=== PATIENT | male | born 1995 | race Caucasian/White ===

== ENCOUNTER 2023-06-07 13:09 | Emergency (ER) | payer BC ==
[~2023-06-07] VITALS: Ht 182.9 cm; Wt 85.7 kg
[2023-06-07 13:23] VITALS: BP 118/70; PULSE 108; RESP 16; TEMP 99.2; O2SAT 97
[2023-06-07] MEDS ORDERED: IBUP-2029 MT (16:46)
== END 2023-06-07 16:50 | disposition home or self-care (01) ==
LOC: ER 13:09
DX: J06.9 Acute upper respiratory infection, unspecified (principal); Z20.822 Contact with and (suspected) exposure to COVID-19
CPT/HCPCS: 71045; 87426; 87804; 99284